=== PATIENT | female | born 1960 | race Caucasian/White ===

== ENCOUNTER → 2017-07-25 | Outpatient (CLI) | payer BC ==
--- NOTE | 2017-07-26 09:36 | RADIOLOGY IMAGING REPORT ---
FACILITY: [facility] PATIENT NAME: FAISAL MODI : [id number] MR: [id number] V: [id number] EXAM DATE: [id number] ORDERING PHYSICIAN: ALDO PERALTA TECHNOLOGIST: Rima Aburto PROCEDURE:BILATERAL DIAGNOSTIC DIGITAL MAMMOGRAM WITH CAD ASSISTED INTERPRETATION & 3D TOMOSYNTHESIS COMPARISON:Prior mammograms 07/20/16, 01/20/16, 08/18/15, 12/23/14, 12/18/14, 12/10/14. INDICATIONS:PRIOR HISTORY OF RIGHT BREAST CA FINDINGS: Mildly heterogeneous fibroglandular tissue is seen throughout the breasts. There is an area of mild postsurgical scaring and surgical clips in the upper outer quadrant of the Right breast from prior lumpectomy. The remainder of the parenchymal pattern has remained stable throughout the breasts. There is a well circumscribed nodular area in the approximate 9 o'clock position of the Left breast. This has previously been demonstrated to represent a cluster of cysts. There is no demonstration of malignant appearing mass, or calcification in either breast at this time. DIAGNOSTIC CATEGORY 2--BENIGN FINDING. RECOMMENDATIONS: ROUTINE MAMMOGRAM AND CLINICAL EVALUATION. IMPRESSION: BIRADS 2: Benign finding No significant abnormality is seen at this time. Dictated by: Christina Hunt M.D. on 07/25/2017 at 17:08 Transcribed by: DEMETRIA on 07/26/2017 at 9:18 Approved by: Christina Hunt M.D. on 07/26/2017 at 9:35 [facility]
== END ==
LOC: MAMO 10:05
PROVIDERS: ATTEND Internal Medicine Medical Oncology
DX: N60.02 Solitary cyst of left breast (principal)
CPT/HCPCS: 77062; 77066

== ENCOUNTER → 2017-08-23 | Outpatient (CLI) | payer BC ==
[~2017-08-23] MED LIST: ANAS1TAB34 PO; CALC500T6 PO; CHOL100052 PO
[2017-08-23 09:25] LABS: PLATELET COUNT, AUTOMATED 263 K/uL (150-450)
== END ==
LOC: LAB 09:01
PROVIDERS: ATTEND Internal Medicine
DX: C50.919 Malignant neoplasm of unspecified site of unspecified female breast (principal); R22.1 Localized swelling, mass and lump, neck; K21.9 Gastro-esophageal reflux disease without esophagitis
CPT/HCPCS: 36415; 82040; 82247; 82310; 82374; 82435; 82565; 82947; 84075; 84132; 84155; 84295; 84439; 84443; 84450; 84460; 84520; 85025

== ENCOUNTER → 2017-08-24 | Outpatient (CLI) | payer BC ==
--- NOTE | 2017-08-24 17:35 | RADIOLOGY IMAGING REPORT ---
FACILITY: [facility] [place] PATIENT NAME: Sonali Chavarria : 1960 MR: [id number] V: [id number] EXAM DATE: ORDERING PHYSICIAN: LETICIA GRAY TECHNOLOGIST: Location: [facility] [place] Patient: Sonali Chavarria : 1960 Visit/Account:[id number] Date of Sevice: 08/24/2017 SOFT TISSUE HEAD NECK HISTORY: lump, neck thyroid?, hx. of breast cancer ADDITIONAL HISTORY: None. COMPARISON: None. FINDINGS: The entire neck was scanned to assess for cervical lymphadenopathy. Level I: No discernible lymph nodes exceeding 10 mm in diameter. Level II: No discernible lymph nodes exceeding 15 mm in diameter. Level III: No discernible lymph nodes exceeding 10 mm in diameter. Level IV: No discernible lymph nodes exceeding 10 mm in diameter. Level V: No discernible lymph nodes are seen 10 mm in diameter. There are no enlarged cervical lymph nodes. There is a solid nodule the right thyroid lobe which corresponds to the palpable area. It measures 3. 0 x 1.5 x 1.9 cm in diameter. It is hypervascular. IMPRESSION: Solid right hypervascular thyroid nodule measuring 3 cm maximum dimension. Recommend ultrasound-guide d FNA for diagnostic purposes. No evidence of cervical adenopathy Report Dictated By: Gray Mccoy MD at 08/24/2017 5:26 PM Report E-Signed By: Gray Mccoy MD at 08/24/2017 5:32 PM WSN:[id number]
== END ==
LOC: US 07:07
PROVIDERS: ATTEND Internal Medicine
DX: E04.1 Nontoxic single thyroid nodule (principal)
CPT/HCPCS: 76536

== ENCOUNTER → 2017-09-04 | Outpatient (CLI) | payer BC ==
[2017-09-04 08:53] LABS: INR 1.04
--- NOTE | 2017-09-04 17:23 | RADIOLOGY IMAGING REPORT ---
FACILITY: [facility] [place] PATIENT NAME: Sonali Chavarria : 1960 MR: [id number] V: [id number] EXAM DATE: ORDERING PHYSICIAN: LETICIA GRAY TECHNOLOGIST: Location: [facility] Patient: Sonali Chavarria : 1960 Visit/Account:[id number] Date of Sevice: 09/04/2017 Exam type: THYROID BIOPSY FINE NEEDLE ASP History: Right thyroid nodule Comparison: Thyroid ultrasound August 24, 2017. Findings: Informed consent was obtained. The right-sided the patient's neck was prepped and draped in usual st erile fashion. Local anesthesia was accomplished with 1% lidocaine. Under sonographic guidance four 25-gauge FNA biopsies were obtained through the large hypoechoic mass right lobe the thyroid samples were given to the radiographic technologist for processing. The procedure was accomplished without parth arent complication IMPRESSION: 1. Successful ultrasound-guided biopsy of the large hypoechoic right thyroid nodule Report Dictated By: Christina Hunt MD at 09/04/2017 5:14 PM Report E-Signed By: Christina Hunt MD at 09/04/2017 5:18 PM WSN:[id number]
== END ==
LOC: US 02:05
PROVIDERS: ATTEND Internal Medicine
DX: R22.1 Localized swelling, mass and lump, neck (principal); E04.1 Nontoxic single thyroid nodule
CPT/HCPCS: 36415; 85610; 85730; 88104; 88172

== ENCOUNTER 2017-09-05 12:42 | Outpatient (RCR) | payer BC ==
[2017-08-16 13:21] VITALS: BP 126/82
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
[~2017-09-05 12:42] MED LIST changes: -DENOSUMAB 60 MG/1 ML SYR SUBQ ONE
[2017-09-05 13:01] VITALS: BP 116/87
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
== END 2017-09-26 14:02 | disposition home or self-care (01) ==
LOC: ONC 12:42
PROVIDERS: ATTEND Internal Medicine Medical Oncology
DX: D05.11 Intraductal carcinoma in situ of right breast (principal); Z79.811 Long term (current) use of aromatase inhibitors; M85.88 Other specified disorders of bone density and structure, other site; Z79.899 Other long term (current) drug therapy; Z87.891 Personal history of nicotine dependence
CPT/HCPCS: 99212

== ENCOUNTER → 2017-09-05 | Outpatient (CLI) | payer BC, OTHER ==
[~2017-09-05] MED LIST changes: +DENOSUMAB 60 MG/1 ML SYR SUBQ ONE
== END ==
LOC: SPU 08:20
PROVIDERS: ATTEND Family Medicine
DX: M85.80 Other specified disorders of bone density and structure, unspecified site (principal)
CPT/HCPCS: 96372; J0897

== ENCOUNTER 2017-11-07 00:36 | Day surgery (SDC) | payer BC ==
[~2017-11-07] VITALS: Ht 167.6 cm; Wt 76.2 kg
[~2017-11-07 00:36] MED LIST changes: +ALBU8.5H IH; +DEN60I SUBQ
[2017-11-07] MEDS ORDERED: PROPOFOL EMUL(*) 10MG/ML 20 ML 20 ML ONE ×3 (07:20→09:35)
[2017-11-07 08:08] VITALS: BP 129/85
[2017-11-07] MEDS ORDERED: LIDOCAINE/SOD BICARB 8.4% SYR ID ONE (08:10)
[2017-11-07] MEDS ORDERED: NORMOSOL R SOLN(*) 1000 ML BAG 1,000 ML IV PRN (08:10)
[2017-11-07 09:38] VITALS: BP 105/73
--- NOTE | 2017-11-07 09:48 | Short(Outpt) Discharge Summary ---
Discharge Summary Reason for Hosp/Final Diag: (1) History of colon polyps Status: Chronic Hospital Course & Plan: Colonoscopy with polypectomy x3 completed without any problems. Departure Discharge to: Home, Self Care Discharge Instructions Home Meds Reported Medications Denosumab (PROLIA) 60 Mg/1 Ml Injs, 60 MG SUBQ [id number] 10/30/17 Albuterol Sulfate 90 Mcg/Act (PROAIR HFA 90 MCG/ACT) 8.5 Gm Hfa.aer.ad, 2 PUFF IH PRN, INHALER 10/30/17 Calcium Carbonate (CALCIUM) 500 Mg Tablet, 1 MG PO QDAY 08/16/17 Cholecalciferol (Vitamin D3) (VITAMIN D) 1,000 Unit Tablet, 1 TAB PO QDAY 08/16/17 Anastrozole (ANASTROZOLE) 1 Mg Tablet, 1 MG PO QDAY 08/16/17 Diet: Regular Activity: As Tolerated Special Instructions: Your colonoscopy was completed without any problems and your prep was excellent (Good Job!!). I removed 3 polyps from your colon and they were sent to pathology. My office will call you in the next week or so and let you know what the polyps are and when your next colonoscopy should be (either 3 or 5 years) depending on pathology results. SAMEER JEFF MD Nov 07, 2017 09:48
[2017-11-07 10:07] VITALS: BP 133/89
[2017-11-07 10:10] VITALS: BP 137/78
== END 2017-11-07 10:15 | disposition home or self-care (01) ==
LOC: OR 00:36
PROVIDERS: ATTEND Surgery
DX: Z12.11 Encounter for screening for malignant neoplasm of colon (principal); D12.5 Benign neoplasm of sigmoid colon; K63.5 Polyp of colon; K62.1 Rectal polyp; Z86.010 Personal history of colon polyps; K57.30 Diverticulosis of large intestine without perforation or abscess without bleeding
CPT/HCPCS: 00811; 45385; 88305; J2704

== ENCOUNTER 2018-03-13 10:50 | Outpatient (RCR) | payer BC ==
[~2018-03-13 10:50] MED LIST changes: -DENOSUMAB 60 MG/1 ML SYR SUBQ ONE
[2018-03-13 10:56] VITALS: BP 116/87
[2018-03-13 11:44] LABS: PLATELET COUNT, AUTOMATED 276 K/uL (150-450)
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
--- NOTE | 2018-03-18 13:08 | RADIOLOGY IMAGING REPORT ---
FACILITY: [facility] PATIENT NAME: Sonali Chavarria : 1960 MR: [id number] V: [id number] EXAM DATE: ORDERING PHYSICIAN: ALDO PERALTA TECHNOLOGIST: Location: [facility] Patient: Sonali Chavarria : 1960 Visit/Account:[id number] Date of Sevice: 03/18/2018 BONE MINERAL DENSITY DEXA Scan Clinical history: Osteopenia. History of breast cancer. Use of an automatic inhibitor Comparison: None. LUMBAR SPINE: The bone mineral density (BMD) measured from L1-L4 correlates with a Z-score of -0.4 and a T-score of -1.1 which is osteopenia as defined by the World Health Organization. The corresponding risk of fra cture in the lumbar spine is increased over 2 times compared with a young adult reference population. HIP: Bone mineral density (BMD) measured in the left total hip region correlates with a Z-score of -0.5 an d a T-score of -1.0 which is osteopenia as defined by the World Health Organization. The correspondi ng risk of fracture in the hip is increased 2 times compared with a young adult reference population. Bone mineral density (BMD) measured in the left Femoral Neck region measures 0.884.g/cm?. T score -1 .1. Osteopenia. Fracture is increased over 2 times g/cm?. Impression: 1. Lumbar spine: Osteopenia. 2. Left Total Hip: Osteopenia. 3. Left Femoral Neck: Bone Mineral Density is 0.884 g/cm?. Osteopenia. The next DEXA scan of this patient should include the following sites: L1-L4 and left hip. FRAX? WHO Fracture Risk Assessment Tool link: <http://www.shef.ac.uk/FRAX/tool.jsp?locationValue=9> PLEASE NOTE: 1) The World Health Organization defines low BMD as follows: T-score Normal > -1 Osteopenia < -1 and > -2.5 Osteoporosis < -2.5 without fractures Established osteoporosis < -2.5 with fractures 2) In general, you may wish to consider: Diagnosis Treatment Follow-up DEXA Normal BMD Prevention 2-3 years Osteopenia Prevention/therapy 1-2 years Osteoporosis Therapy Yearly 3) Fracture risk estimated from the T-score is more accurate for vertebral fractures (often spontane ous) than for hip fractures. Report Dictated By: Jesu Ulloa MD at 03/18/2018 1:01 PM Report E-Signed By: Jesu Ulloa MD at 03/18/2018 1:04 PM WSN:[id number]
== END 2018-03-27 13:28 | disposition home or self-care (01) ==
LOC: ONC 10:50
PROVIDERS: ATTEND Internal Medicine Medical Oncology
DX: D05.11 Intraductal carcinoma in situ of right breast (principal); Z79.811 Long term (current) use of aromatase inhibitors; M85.88 Other specified disorders of bone density and structure, other site; Z79.899 Other long term (current) drug therapy; Z87.891 Personal history of nicotine dependence
CPT/HCPCS: 77080; 82040; 82247; 82306; 82310; 82374; 82435; 82565; 82947; 84075; 84132; 84155; 84295; 84450; 84460; 84520; 85025; 99212

== ENCOUNTER → 2018-03-13 | Outpatient (CLI) | payer BC ==
[~2018-03-13] MED LIST changes: +DENOSUMAB 60 MG/1 ML SYR SUBQ ONE
== END ==
LOC: SPU 07:44
PROVIDERS: ATTEND Internal Medicine Medical Oncology
DX: C50.919 Malignant neoplasm of unspecified site of unspecified female breast (principal)
CPT/HCPCS: 96372; J0897

== ENCOUNTER → 2018-05-21 | Outpatient (CLI) | payer BC ==
[~2018-05-21] MED LIST changes: +PANT40TA65 PO
[2018-05-21 08:29] LABS: PLATELET COUNT, AUTOMATED 228 K/uL (150-450)
[2018-05-21 09:07] LABS: LDL CHOLESTEROL 113 mg/dl
== END ==
LOC: LAB 08:04
PROVIDERS: ATTEND Internal Medicine
DX: Z00.00 Encounter for general adult medical examination without abnormal findings (principal); C50.919 Malignant neoplasm of unspecified site of unspecified female breast; D36.10 Benign neoplasm of peripheral nerves and autonomic nervous system, unspecified; E04.1 Nontoxic single thyroid nodule; R42 Dizziness and giddiness
CPT/HCPCS: 81001; 82040; 82247; 82310; 82374; 82435; 82465; 82565; 82947; 83718; 84075; 84132; 84155; 84295; 84443; 84450; 84460; 84478; 84520; 85025

== ENCOUNTER 2018-06-04 00:41 | Outpatient (RCR) | payer BC ==
[2018-06-04] MEDS ORDERED: GADOBENATE 529MG/1ML 15ML VIAL IVP ONE (08:55)
--- NOTE | 2018-06-04 10:14 | RADIOLOGY IMAGING REPORT ---
FACILITY: [facility] PATIENT NAME: Sonali Chavarria : 1960 MR: [id number] V: [id number] EXAM DATE: ORDERING PHYSICIAN: LETICIA GRAY TECHNOLOGIST: Location: [facility] Patient: Sonali Chavarria : 1960 Visit/Account:[id number] Date of Sevice: 06/04/2018 Study: MRI of the brain without and with gadolinium contrast. Indication: Vertigo, history of schwannoma Comparison study: None Contrast used: 15 mL MultiHance gadolinium contrast Technique: Multiplanar MRI sequences were obtained through the brain before and after the administrat ion of gadolinium contrast. The examination demonstrates no evidence of acute intracranial hemorrhage. There is no evidence of ex tra-axial collection or hydrocephalus. There are scattered areas of high T2-weighted signal present within the supratentorial white matter. These areas are nonspecific in appearance and may represent ischemic or inflammatory demyelination. There is no contrast enhancement associated with these lesions. There is no evidence of cerebellopontine angle mass. There is a 2 mm area of contrast enhancement wi thin the superior aspect of the right internal auditory canal. This likely represents a small vestib ular schwannoma. The pituitary gland is unremarkable in appearance. There is no evidence of abnormality of the pineal gland. A diffusion-weighted sequence was performed and demonstrates no evidence of active ischemia. There is no evidence of active infarct The orbits are unremarkable. The paranasal sinuses are unremarkable. Incidental note is made of patchy opacification of the right mastoid air cells Following the administration of gadolinium contrast, there is no abnormal intracranial contrast enhan cement. IMPRESSION: Scattered patchy areas of high T2-weighted signal present within the supratentorial white matter. These areas are nonspecific in appearance and may represent ischemic or inflammatory demyel ination. There is a 2 mm area of contrast enhancement within the right internal auditory canal. This likely r epresents a small vestibular schwannoma. There are no previous studies available for comparison. Report Dictated By: Pedro Luis Knapp at 06/04/2018 9:59 AM Report E-Signed By: Pedro Luis Knapp at 06/04/2018 10:08 AM WSN:[id number]
--- NOTE | 2018-06-05 10:41 | RADIOLOGY IMAGING REPORT ---
FACILITY: [facility] - [place] PATIENT NAME: Sonali Chavarria : 1960 MR: [id number] V: [id number] EXAM DATE: ORDERING PHYSICIAN: LETICIA GRAY TECHNOLOGIST: Location: [facility] Patient: Sonali Chavarria : 1960 Visit/Account:[id number] Date of Sevice: 06/05/2018 THYROID HISTORY: thyroid nodule COMPARISON: Ultrasound soft tissue head and neck August 24, 2017 FINDINGS: SIZE: Right lobe: 5.2 x 1.7 x 2.1 cm Left lobe: 2.9 x 1.1 x 1.1 cm Isthmus: 2 mm PARENCHYMA: Homogeneous. NODULES: Right lobe: * Again noted is the slightly lobular hypervascular hypoechoic nodule encompassing much of the right lobe. This nodule measures 3.15 x 2.1 x 1.6 cm previously measuring 3 x 1.5 x 1.9 cm and is slightl y increased in size. This nodule has been previously biopsied although the pathology results are not currently available at this time Left lobe: * None discrete. Isthmus: * None discrete. VASCULARITY: Within normal limits. ADDITIONAL FINDINGS: None. IMPRESSION: Again noted is a slightly lobular hypervascular hypoechoic nodule encompassing much of the right lobe . The nodule is slightly increased in size now measuring 3.15 x 2.1 x 1.6 cm as opposed to 3 x 1.5 x 1.9 cm.. This has been previously biopsied. Correlation with prior pathology results needed REFERENCE: 2015 [place] [employer] Management Guidelines for Adult Patients with Thyroid Nodules and D ifferentiated Thyroid Cancer: The [place] [employer] Guidelines Task Force on Thyroid Nodul es and Differentiated Thyroid Cancer. SONOGRAPHIC PATTERNS: * Benign: Purely cystic nodules (no solid component); estimated risk of malignancy <1 percent; no bi opsy recommended. * Very Low Suspicion: Spongiform or partially cystic nodules without any of the sonographic features described in low, intermediate, or high suspicion patterns; estimated risk of malignancy <3 percent; consider FNA at > 2 cm (Observation without FNA is also a reasonable option). * Low Suspicion: Isoechoic or hyperechoic solid nodule, or partially cystic nodule with eccentric so lid areas, without microcalcification, irregular margin or ETE (extra-thyroidal extension), or taller than wide shape; estimated risk of malignancy 5-10 percent; recommend FNA at >1.5 cm. * Intermediate Suspicion: Hypoechoic solid nodule with smooth margins without microcalcifications, E TE (extra-thyroidal extension), or taller than wide shape; estimated risk of malignancy 10-20 percent ; recommend FNA at > 1 cm. * High Suspicion: Solid hypoechoic nodule or solid hypoechoic component of a partially cystic nodule with one or more of the following features: irregular margins (infiltrative, microlobulated), microc alcifications, taller than wide shape, rim calcifications with small extrusive soft tissue component, evidence of ETE (extra-thyroidal extension); estimated risk of malignancy >70-90 percent; recommend FNA at > 1 cm. NOTES: * Although a sonographically suspicious subcentimeter thyroid nodule without evidence of extrathyroi rudy extension or sonographically suspicious lymph nodes may be observed with close sonographic follow -up rather than pursuing immediate FNA, patient age and preference may modify decision-making. A > 50% interval increase in nodule volume and/or development of new suspicious sonographic features are felt to be a valid reasons for potential re-aspiration of a nodule previously shown to have benig n FNA cytology. Report Dictated By: Christina Hunt MD at 06/05/2018 10:31 AM Report E-Signed By: Christina Hunt MD at 06/05/2018 10:36 AM WSN:[id number]
--- NOTE | 2018-06-07 12:01 | RADIOLOGY IMAGING REPORT ---
FACILITY: [facility] - [place] PATIENT NAME: Sonali Chavarria : 1960 MR: [id number] V: [id number] EXAM DATE: ORDERING PHYSICIAN: LETICIA GRAY TECHNOLOGIST: Location: [facility] [place] Patient: Sonali Chavarria : 1960 Visit/Account:[id number] Date of Sevice: 06/07/2018 EXAMINATION: MRI Brain without intravenous contrast MRI Brain with intravenous contrast, detailed IACs HISTORY: Vertigo. COMPARISON: 06/04/2018. TECHNIQUE: Multi-planar, multi-sequence brain MRI was performed before and after IV gadolinium. Thin section imaging was performed in the axial and coronal planes centered on the IACs. CONTRAST: 15 mL of IV MultiHance FINDINGS: IAC detailed study: Brain stem: Negative. Cerebellopontine angles: Negative. IACs / CN VII and VIII: 2 mm enhancing lesion in the distal, superior right internal auditory canal c onsistent with vestibular schwannoma (series 10, image 6; series 11, image 9). Otherwise negative. Inner ear: Negative. Middle ear: Negative. Mastoids / petrous apices: Negative. Rest of brain: Stable mild nonspecific chronic white matter disease. No evidence of acute infarction, hemorrhage, mass, or fluid collection. Leftward nasal septal deviation. IMPRESSION: 1. 2 mm enhancing lesion in the distal, superior right internal auditory canal consistent with vestib ular schwannoma (series 10, image 6; series 11, image 9). 2. Stable mild nonspecific chronic white matter disease in the brain. Report Dictated By: Dannie Saldaña MD at 06/07/2018 11:52 AM Report E-Signed By: Dannie Saldaña MD at 06/07/2018 11:58 AM WSN:[email or web address]
== END 2018-06-07 19:00 | disposition home or self-care (01) ==
LOC: MRI 00:41 → EDSTATUS 14:22 → MRI 06-07 19:00
PROVIDERS: ATTEND Internal Medicine
DX: D36.10 Benign neoplasm of peripheral nerves and autonomic nervous system, unspecified (principal); R42 Dizziness and giddiness
CPT/HCPCS: 70553; 76536; A9577

== ENCOUNTER 2018-07-18 01:08 | Observation (INO) | payer BC ==
[2018-07-18] VITALS (16 sets, daily range): BP systolic 89–139; BP diastolic 70–103
[~2018-07-18] VITALS: Ht 167.6 cm; Wt 74.8 kg
[2018-07-18] MEDS ORDERED: fentaNYL CITR 250 MCG/5 ML AMP ONE (06:19)
[2018-07-18] MEDS ORDERED: LIDOCAINE 2% IV 100 MG/5ML SYR ONE (06:21)
[2018-07-18] MEDS ORDERED: ROPIVACAINE 0.5% 20 ML VIAL ONE (06:21)
[2018-07-18] MEDS ORDERED: PROPOFOL EMUL(*) 10MG/ML 20 ML 20 ML ONE (06:22)
[2018-07-18] MEDS ORDERED: FAMOTIDINE 20 MG TAB PO ONE (06:45)
[2018-07-18] MEDS ORDERED: MIDAZOLAM 2 MG/2 ML VIAL IVP PRN (06:45)
[2018-07-18] MEDS ORDERED: LIDOCAINE/SOD BICARB 8.4% SYR ID ONE (06:45)
[2018-07-18] MEDS ORDERED: NORMOSOL R SOLN(*) 1000 ML BAG 1,000 ML IV PRN (06:45)
[2018-07-18] MEDS ORDERED: VANCOMYCIN 1 GM ADDVIAL 1 GM in NS(*) 0.9% 250 ML ADDVAN BAG 250 ML IVPB ONE (06:45)
[2018-07-18] MEDS ORDERED: DEXAMETHASONE SOD 4 MG/ML VIAL ONE (07:06)
[2018-07-18] MEDS ORDERED: ONDANSETRON 4 MG/2 ML VIAL ONE (07:07)
[2018-07-18] MEDS ORDERED: KETAMINE HCL 200 MG/20 ML MDV ONE ×2 (07:13→08:18)
[2018-07-18] MEDS ORDERED: fentaNYL CITR 100 MCG/2 ML AMP ONE ×2 (07:25→09:13)
[2018-07-18] MEDS ORDERED: NS(*) 0.9% 1000 ML BAG 1,000 ML IV PRN (09:28)
[2018-07-18] MEDS ORDERED: MORPHINE 2 MG/ML SYR IVP PRN (09:30)
[2018-07-18] MEDS ORDERED: FLUSH 10 ML SYR IVP PRN (09:30)
[2018-07-18] MEDS ORDERED: ONDANSETRON 4 MG/2 ML VIAL IVP PRN (09:30)
--- NOTE | 2018-07-18 09:46 | Post Operative Progress Note ---
Post Operative Progress Note Date: Jul 18, 2018 Time: 09:34 Surgeon: Hasmukh Dictation number: [id number] Anesthesia: GETA by Dr. Fernandes Pre-Op Diagnosis: Growing right thyroid nodule Post-Op Diagnosis: SUHAIL Findings: C/W dx Procedure(s): Right thyroid lobectomy Specimen Removed:(May be N/A): Right thyroid lobe Complications: none Fluids: See anesthesia record Estimated Blood Loss: Minimal Date OP Note Dictated: Jul 18, 2018 Time OP Note Dictated: 09:35 SAMEER JEFF MD Jul 18, 2018 09:46
[2018-07-18] MEDS ORDERED: ALBUTEROL 8 GM INHALER INH PRN (10:00)
--- NOTE | 2018-07-18 10:33 | OPERATIVE REPORT 1 ---
EVENT DATE: July 18, 2018 SURGEON: Giovany Noe MD ANESTHESIOLOGIST: Evin Fernandes MD ANESTHESIA: General endotracheal. PREOPERATIVE DIAGNOSIS Growing right thyroid nodule. POSTOPERATIVE DIAGNOSIS Growing right thyroid nodule. PROCEDURE PERFORMED Right thyroid lobectomy. COMPLICATIONS None. CONDITION Stable. ESTIMATED BLOOD LOSS Minimal. SPECIMEN Right thyroid lobe. INDICATIONS This is a 57-year old female who presented to my office after having a thyroid nodule in the right lobe that was being followed but every ultrasound was getting a little bit larger. FNA revealed it to be benign but because it was continuing to get larger she elected to have the right thyroid removed. DESCRIPTION OF PROCEDURE Patient was brought into the operating room and placed supine on the operating table. General endotracheal anesthesia was administered with the nerve monitor, endotracheal tube and the nerve monitor was all set up and then her neck was prepped and draped in a sterile fashion. She was put in a reclining beach chair position on the operating table. A time-out was completed and I marked the skin just above her sternal notch in a convenient skin crease. I anesthetized the skin with 0.5% ropivacaine plain and made a 6 cm transverse incision in the skin crease. I then dissected through the dermis and subcutaneous fat and then identified the platysmas muscle, which I divided transversely and then created subplatysmal flaps up to the thyroid notch and down to the sternal notch. I then divided the median raphae vertically in the midline and then created with mostly blunt dissection the plane between the thyroid and the strap muscles all the way laterally around the edges of the thyroid. I divided the thyroid isthmus with electrocautery in a hemostatic fashion and then continued my dissection out laterally. I identified the inferior vascular pedicle, the inferior lobe, with a Harmonic scalpel and then worked on the superior pole, which using a combination of blunt and harmonic dissection was able to divide the vascular pedicle on the superior pole. I then continued medializing the thyroid lobe and divided the medial thyroidal vein with the Harmonic scalpel and then identified both the superior and inferior parathyroid glands and they were preserved in situ with good vascular supply and then used the nerve monitor in this area as I got to the ligament of De La Cruz and identified the recurrent laryngeal nerve, which was functional, and then divided the ligament of De La Cruz and then passed the specimen off the field to be sent to pathology fresh for frozen section analysis. I then irrigated and dried the patient's right neck and placed Surgicel in the neck and it was completely hemostatic when I was done. I placed a 10-Hungarian round drain in the right neck and it exited in the suprasternal notch and I sewed it to the skin with a 2-0 silk suture. I then got the results back from the pathologist and they revealed what looked like a multinodular goiter but no cancer was identified on frozen section. I then closed the median raphae with interrupted 3-0 Vicryl sutures and the platysmas muscle was closed with interrupted 3-0 Vicryl sutures. The skin was closed with interrupted 3-0 Vicryl deep dermal sutures and 4-0 Monocryl running subcuticular suture. The skin was cleaned and dried and I placed Steri-Strips longitudinally along the incision and then placed dressings around the drain and taped these into place. The patient was then awakened and extubated in the operating room and transported to the recovery room in stable condition, having tolerated the procedure without any apparent problems. MITESH
[2018-07-18] MEDS: FAMOTIDINE 20 MG TAB PO SCH (20:24)
[2018-07-18] MEDS: DOCUSATE SODIUM 100 MG CAP PO SCH (20:24)
[2018-07-19 00:40] VITALS: BP 145/88
[2018-07-19 06:53] VITALS: BP 151/95
[2018-07-19] MEDS: DOCUSATE SODIUM 100 MG CAP PO SCH (08:03)
[2018-07-19] MEDS: FAMOTIDINE 20 MG TAB PO SCH (08:03)
[2018-07-19] MEDS ORDERED: PER PO (08:28)
[2018-07-19] MEDS ORDERED: DOCU-202 PO (08:28)
--- NOTE | 2018-07-19 08:32 | Short(Outpt) Discharge Summary ---
Discharge Summary Reason for Hosp/Final Diag: (1) Thyroid nodule Status: Chronic Hospital Course & Plan: 07/19/18: POD#1 s/p right thyroid lobectomy. No complaints this morning. No hoarseness. Drain removed. Incision looks good. Will d/c to home this morning. Departure Discharge to: Home, Self Care Discharge Instructions Home Meds Active Scripts Oxycodone/Acetaminophen (OXYCODONE/ACETAMINOPHEN 5MG/325 MG) 5 Mg/325 Mg Tab, 1 TAB PO Q4H PRN for MODERATE PAIN, #20 TAB 0 Refills Prov:SAMEER JEFF MD 07/19/18 Docusate Sodium (DOCUSATE SODIUM) 100 Mg Capsule, 1 CAP PO BID, #30 CAPSULE 0 Refills Prov:SAMEER JEFF MD 07/19/18 Reported Medications Denosumab (PROLIA) 60 Mg/1 Ml Injs, 60 MG SUBQ [id number] 10/30/17 Albuterol Sulfate 90 Mcg/Act (PROAIR HFA 90 MCG/ACT) 8.5 Gm Hfa.aer.ad, 2 PUFF IH PRN, INHALER 10/30/17 Calcium Carbonate (CALCIUM) 500 Mg Tablet, 860 MG PO QDAY 08/16/17 Cholecalciferol (Vitamin D3) (VITAMIN D) 1,000 Unit Tablet, 2 TAB PO QDAY 08/16/17 Anastrozole (ANASTROZOLE) 1 Mg Tablet, 1 MG PO QDAY 08/16/17 Follow up Referrals: General Surgery - 08/02/18 @ Surgery, General with SAMEER JEFF MD You have a follow up appointment scheduled with Dr. Jeff on 08/02/18, at 9:30am. Diet: Regular Activity: No Heavy Lifting Special Instructions: You may remove the dressing over the drain site on 07/20/18, then you can shower. After showering, you can leave the incision and drain site open to air if there's no further drainage or you can place a new gauze over the drain site and change it daily until there's no further drainage. Leave the steristrips on the incision until they fall off on their own. Do not immerse the incision or drain site for 2 weeks. Avoid any activity that involves straining or lifting more than 10 pounds for 1 week after surgery. SAMEER JEFF MD Jul 19, 2018 08:32
[2018-07-19] MEDS ORDERED: CALCIUM OYSTER SHELL 500MG TAB PO SCH (09:00)
[2018-07-19] MEDS ORDERED: CHOLECALCIFEROL 1000 UNIT TAB PO SCH (09:00)
[2018-07-19] MEDS ORDERED: ANASTROZOLE 1 MG TAB PO SCH (09:00)
[2018-07-19 10:03] VITALS: Ht 167.6 cm; Wt 74.8 kg
== END 2018-07-19 08:27 | disposition home or self-care (01) ==
LOC: OR 01:08 → MED 10:35 → INTOOBSV 10:35
PROVIDERS: ADMIT Surgery; ATTEND Surgery
DX: E04.9 Nontoxic goiter, unspecified (principal)
CPT/HCPCS: 60220; 88307; 88331; G0378; J1100; J2001; J2405; J2704; J2795; J3010; J3370; J3490; J7050; J9999

== ENCOUNTER → 2018-08-12 | Outpatient (CLI) | payer BC ==
[2018-07-19 10:03] VITALS: BMI 26.6
[~2018-08-12] MED LIST changes: +DOCU-202 PO; +PER PO
--- NOTE | 2018-08-15 08:24 | RADIOLOGY IMAGING REPORT ---
FACILITY: [facility] PATIENT NAME: FAISAL STAFFORD : [id number] MR: [id number] V: [id number] EXAM DATE: [id number] ORDERING PHYSICIAN: ALDO PERALTA TECHNOLOGIST: Rima Aburto PROCEDURE:BILATERAL DIGITAL SCREENING MAMMOGRAM WITH CAD ASSISTED INTERPRETATION & 3D TOMOSYNTHESIS COMPARISON:Prior mammograms 07/25/17, 07/20/16, 01/20/16, 08/18/15, 12/10/14. INDICATIONS:screening FINDINGS: The breasts are heterogeneously dense which can obscure small masses. The parenchymal pattern has remained stable allowing for difference in mammographic technique & patient positioning. Surgical clips again seen in the upper outer quadrant of the Right breast. DIAGNOSTIC CATEGORY 2--BENIGN FINDING. RECOMMENDATIONS: ROUTINE MAMMOGRAM AND CLINICAL EVALUATION. IMPRESSION: BIRADS 2: Benign finding. No significant abnormality is seen. Dictated by: Christina Hunt M.D. on 08/13/2018 at 16:09 Transcribed by: DEMETRIA on 08/14/2018 at 8:40 Approved by: Christina Hunt M.D. on 08/15/2018 at 8:22 [facility]
== END ==
LOC: MAMO 00:59
PROVIDERS: ATTEND Internal Medicine Medical Oncology
DX: Z12.31 Encounter for screening mammogram for malignant neoplasm of breast (principal); Z80.3 Family history of malignant neoplasm of breast
CPT/HCPCS: 77063; 77067

== ENCOUNTER → 2018-09-18 | Outpatient (CLI) | payer BC ==
[2018-07-19 10:03] VITALS: BMI 26.6
[~2018-09-18] MED LIST changes: +DENOSUMAB 60 MG/1 ML SYR SUBQ ONE
== END ==
LOC: SPU 08:54
PROVIDERS: ATTEND Internal Medicine Medical Oncology
DX: C50.919 Malignant neoplasm of unspecified site of unspecified female breast (principal)
CPT/HCPCS: 96372; J0897

== ENCOUNTER 2018-10-23 11:28 | Outpatient (RCR) | payer BC ==
[2018-07-19 10:03] VITALS: Wt 75.4 kg
[2018-09-18 09:55] LABS: PLATELET COUNT, AUTOMATED 266 K/uL (150-450)
[2018-09-18 12:45] VITALS: BP 127/79
[~2018-10-23 11:28] MED LIST changes: -DENOSUMAB 60 MG/1 ML SYR SUBQ ONE
[2018-10-23 11:37] VITALS: BP 113/80
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
[2018-10-24] MEDS ORDERED: ANAS1TAB34 PO (15:24)
== END 2018-10-23 15:39 | disposition home or self-care (01) ==
LOC: ONC 11:28
PROVIDERS: ATTEND Internal Medicine Medical Oncology
DX: D05.11 Intraductal carcinoma in situ of right breast (principal); Z79.811 Long term (current) use of aromatase inhibitors; M85.88 Other specified disorders of bone density and structure, other site
CPT/HCPCS: 82040; 82247; 82306; 82310; 82374; 82435; 82565; 82947; 84075; 84132; 84155; 84295; 84450; 84460; 84520; 85025; 99212